=== PATIENT | male | born 1960 | race Caucasian/White ===

== ENCOUNTER 2021-04-13 07:46 | Outpatient (CLI) | payer OTHER, BC, SELFPAY ==
--- NOTE | ~2021-04-13 | CT_ITS ---
EXAMINATION: CT abdomen wo con EXAM DATE: 04/13/2021 08:14 INDICATION: Pancreatitis. TECHNIQUE: Spiral CT of the abdomen was performed without contrast. Axial, coronal and sagittal lelo ges of the abdomen were reviewed. The dose-length product (DLP) for this examination was 276.04 mGy- cm. The exposure was tailored according to patient size (auto mA exposure control), and iterative re construction (ASIR) was used as additional dose reduction technique. There is no prior study for sarah blandon. FINDINGS: Numerous liver masses in all lobes, metastatic disease. Pancreas, spleen are unremarkable. There is an indeterminate left adrenal nodule in each adrenal gland, both measuring about 1 cm Gallb ladder is unremarkable. No biliary obstruction. There is no nephrolithiasis or hydronephrosis. T here is no retroperitoneal lymphadenopathy. There is mild to moderate scattered arteriosclerotic di sease. The stomach and small bowel are unremarkable. There is expected amount of colonic stool. No free intraperitoneal gas. The heart is normal in size. There are no pericardial or pleural effusions. There is a lingular nodule measuring 8 x 13 mm without spiculations. There is an 8 mm right lower lo be nodule without spiculations. Old right lower rib fractures laterally. There is subtle low density 5 mm region within the left 11th rib without cortical destruction. Early osteolytic disease not excl udable. IMPRESSION: 1. Extensive liver metastases. 2. Indeterminate bilateral adrenal nodules. 3. 2 basilar lung nodules, possible metastatic disease. 4. Left 11th rib osteolytic lesion not excludable. 5. Consider PET/CT. Reviewed, dictated and finalized at location A. DENTIAL DOOR UNIT INSTALLER
== END 2021-04-13 07:47 | disposition home or self-care (01) ==
PROVIDERS: PCP Internal Medicine; Visit Provider Internal Medicine
DX: K85.90 Acute pancreatitis without necrosis or infection, unspecified (principal); C78.7 Secondary malignant neoplasm of liver and intrahepatic bile duct; D35.01 Benign neoplasm of right adrenal gland; D35.02 Benign neoplasm of left adrenal gland; R91.8 Other nonspecific abnormal finding of lung field
CPT/HCPCS: 74150

== ENCOUNTER → 2021-05-04 02:14 | Outpatient (CLI) | payer OTHER, BC, SELFPAY ==
[2021-05-04 16:44] LABS: SARS-CoV-2 RNA PCR Negative
== END ==
PROVIDERS: Visit Provider Surgery
DX: Z01.812 Encounter for preprocedural laboratory examination (principal); Z20.822 Contact with and (suspected) exposure to COVID-19
CPT/HCPCS: C9803; U0003; U0005

== ENCOUNTER 2021-05-04 08:27 | Outpatient (CLI) | payer OTHER, BC, SELFPAY ==
[2021-05-04 09:09] LABS: Basophils Absolute Auto 0.1 K/mm3 (0.0-0.1); Basophils Percent Auto 0.6 % (0.2-1.2); Eosinophils Absolute Auto 0.1 K/mm3 (0-0.3); Eosinophils Percent Auto 0.7 % (0-4.4); Hematocrit 42.6 % (42.0-52.0); Hemoglobin 14.2 g/dL (14.0-18.0); Immature Granulocyte Absolute 0.04 K/mm3 (0.00-0.031); Immature Granulocyte Percent A 0.4 % (0-0.5); Lymphocytes Absolute Auto 1.41 K/mm3 (0.9-3.2); Lymphocytes Percent Auto 13.6 % (18.3-44.2); Mean Corpuscular HGB Conc 33.3 g/dl (32-36); Mean Corpuscular Hemoglobin 31.4 pg (26-34); Mean Corpuscular Volume 94.2 fl (80-100); Mean Platelet Volume 9.8 fl (7.4-10.4); Monocytes Absolute Auto 0.9 K/mm3 (0.1-0.6); Monocytes Percent Auto 8.2 % (2.6-8.5); Neutrophils Absolute Auto 7.9 K/mm3 (1.3-6.7); Neutrophils Percent Auto 76.5 % (45.5-73.1); Platelet Count Result 268 k/mm3 (150-375); Red Blood Count 4.52 M/mm3 (4.6-6.20); Red Cell Distribution Width 12.6 % (11.5-14.5); White Blood Count 10.3 K/mm3 (4.5-10.0)
[2021-05-04 09:18] LABS: Prothrombin Time 12.8 Seconds (11.1-14.7)
== END 2021-05-04 08:28 | disposition home or self-care (01) ==
LOC: ANHSURGERY 08:32
PROVIDERS: PCP Internal Medicine; Visit Provider Surgery
DX: C34.90 Malignant neoplasm of unspecified part of unspecified bronchus or lung (principal); Z01.818 Encounter for other preprocedural examination
CPT/HCPCS: 36415; 85025; 85610; 85730

== ENCOUNTER 2021-05-07 04:00 | Day surgery (SDC) | payer OTHER, BC, SELFPAY ==
[2021-05-03 11:38] VITALS: BMI 25.2
--- NOTE | 2021-05-03 11:49 | PC.NURSE ---
Report to the Outpatient Waiting Room, entrance under the green pavilion located off [facility], at time 11:30 on date 05/07/21. OR Time: 1:30. - You will be asked a series of questions to screen for COVID 19 for your protection. - A mask is required within the hospital. - No visitors are allowed at this time. Preoperative COVID Testing Requirements: COVID TEST 05/04 AT 8:30 No COVID Test needed if: (proof is required; if not received patient will have Rapid Test prior to entry) - Patient has received COVID Vaccine at least 14 days prior to procedure date or - Patient has positive COVID test result within last 90 days of surgery date. COVID Test needed if above criteria is not met If not COVID vaccinated a COVID test must be conducted within 72 hours of surgery and patient is asked to isolate self from time of testing until procedure. You will go to the [employer] [facility] for your COVID testing. The [employer] [facility] site is located at the corner of [address] [facility]. You will only be called if COVID results are positive and your surgeon may reschedule your elective surgery date. Patients may have clear liquids (water, carbonated beverages, clear teas, apple juice) until 3 hours prior to surgery (10:30) with a maximum of 20 ounces. - No food from midnight until time of surgery Take the following medications with a SIP of water the morning of surgery: ALPRAZOLAM (IF NEEDED) Medications to discontinue per physician: N/A Date to take last dose: N/A Please no make-up, nail senegalese, hairspray, perfume, deodorant, or body powder the day of surgery. No jewelry (including any body piercings) or valuables the day of surgery, leave them at home. Please take a shower or bath the night before, or the morning of, surgery with an antibacterial soap. Wear comfortable, loose fitting clothing. - Jewelry must be removed prior to entering the operating room. Rings and piercings that are not removed may be cut off. - The hospital will not accept responsibility for valuables. - Please leave all valuables, including medications, at home the day of surgery. If you are going home after surgery, a licensed entry level truck driver must drive you home. - NO public transportation without another adult. - We recommend that an adult stay with you for 24 hours following discharge. - We also recommend that you do not drive, make important decision, drink alcoholic beverages, or take any drugs that were not prescribed by your health care provider for at least 24 hours after your discharge time. Follow any additional instructions given to you from your surgeon. Telephone instructions given to DEWAYNE DANIELLE and asked if any additional questions and then verbalized understanding. Patient advised to call surgeon office or pre surgery nurse liaison [phone] if any additional questions.
--- NOTE | ~2021-05-07 | XR_ITS ---
EXAMINATION: XR fl guide central line place DATE: 05/07/2021 14:54 INDICATION: Port catheter insertion TECHNIQUE: 2 fluoroscopic images of the central chest were obtained during procedure performed by Dr. Montelongo. Radiologist was not present for the imaging or procedure. The amount of fluoroscopy time us ed during this procedure was 0.7 minutes. COMPARISON: None. FINDINGS: Right internal jugular central venous port catheter with distal tip at the caudal superior vena cava. Linear band of discoid atelectasis/scarring extending across the right midlung zone. No evident pneu mothorax. IMPRESSION: 1. Fluoroscopy utilized during right internal jugular central venous port catheter placement with dis kenroy tip at the caudal superior vena cava. Reviewed, dictated and finalized at location A. TRIC TRIPPER MACHINE OPERATOR IMPRESSION: 1. Fluoroscopy utilized during right internal jugular central venous port sky ter placement with distal tip at the caudal superior vena cava.
--- NOTE | ~2021-05-07 | XR_ITS ---
EXAMINATION: XR chest port-a-cath/central DATE: 05/07/2021 15:39 INDICATION: Right port catheter placement TECHNIQUE: frontal view of the chest was obtained. COMPARISON: None FINDINGS: Right internal jugular central venous port catheter with distal tip at the midsuperior vena cava. Ban dlike discoid atelectasis/scarring extends laterally from a masslike at the right hilum. There is als o widening of the right paratracheal stripe. Appearance suspicious for metastatic disease and potenti ally primary bronchogenic carcinoma. Mild opacities in the right upper lung zone which could represen t additional atelectasis and/or pneumonia. No other airspace opacities, pulmonary edema, pleural effu meghan or pneumothorax. Arch size is normal. IMPRESSION: 1. Right internal jugular central venous port catheter tip at the midsuperior vena cava. 2. Masslike opacity right hilum and widening of the right paratracheal stripe suspicious for metastat ic disease and potentially primary bronchogenic carcinoma. 3. More peripheral opacities in the right mid and upper lung zone due at least in part to atelectasis although superimposed pneumonia not excludable. Reviewed, dictated and finalized at location A. TENTER OPERATOR IMPRESSION: 1. Right internal jugular central venous port catheter tip at the midsuperior v lawrence cava. 2. Masslike opacity right hilum and widening of the right paratracheal stripe s uspicious for metastatic disease and potentially primary bronchogenic carcinoma . 3. More peripheral opacities in the right mid and upper lung zone due at least in part to atelectasis although superimposed pneumonia not excludable.
--- NOTE | 2021-05-07 12:07 | PM.HPGS ---
History of Present Illness History of Present Illness Consent: Risks, benefits, and alternatives of placement of a Port-A-Cath with ultrasound guidance have been discussed and questions answered. Patient agrees to proceed with procedure. Chief complaint: malignant neoplasm of lung Narrative: Ariel Marshall is a 60 year old male who has recently discovered lung cancer. There are also metastasis to the liver. He is to be scheduled but has not yet had a core biopsy of a liver lesion guided by CT. Recently saw Dr. Newsome in the office and they are planning to proceed with several rounds of chemotherapy. Therefore, the risks benefits and possible complications including pneumothorax, possible injury to surrounding organs, possible infection and possible bleeding as far as possible complications for placement of a port have been discussed and he seems understand wished to proceed this will allow for improved access to the venous system for administration of chemotherapy or immune therapy Pt. states that he has had a PET scan in [place] at [facility]. He states that he has discussed this with Dr. Newsome and they believe that the most likely primary site is a lung cancer. Review of Systems Constitutional: Constitutional: Reports no additional constitutional complaints, Reports fatigue and Denies malaise Eyes: Eyes: Denies change in vision and Denies loss of vision ENT: Reports Normal hearing present, Denies change in voice, Denies dizziness, Denies hoarseness and Denies sore throat Cardiovascular: Cardiovascular: Denies chest pain, Denies leg edema and Denies dyspnea Respiratory: Respiratory: Denies cough, Denies dyspnea and Denies wheezing Comments: Patient has been a 1 pack-a-day smoker and now smokes 0.5 packs per day. Gastrointestinal: Gastrointestinal: Denies hematochezia, Denies change in bowel habits and Denies heartburn Comments: Now known to have multiple small liver metastasis throughout all lobes of the liver. Apparently also has GERD and is on Protonix at home daily. Genitourinary: Genitourinary: Denies urinary frequency and Denies urinary incontinence Neurologic: Reports Normal hearing present, Denies confusion, Denies dizziness, Denies loss of vision, Denies memory loss and Denies seizure-like activity Psychiatric: Psychiatric: Denies confusion, Denies depression and Denies memory loss Endocrine: Endocrine: Denies cold intolerance and Reports fatigue Hematologic/Lymphatic: Hematologic/Lymphatic: Denies easy bleeding and Denies easy bruising Allergic/Immunologic: Allergic/Immunologic: Denies wheezing PMFSH Social History Social History Smoking packs per day: 2 Smoking cigarettes per day: 40.0 Years smoked: 45 Smoking pack-years: 90.00 Smoking status: Current some day smoker Tobacco type: cigarettes Additional smoking assessment comments: 2019 - CUT BACK TO A COUPLE CIGARETTES EVERY FEW DAYS Alcohol intake: former Alcohol use details: QUIT DRINKING ALCOHOL EARLY MARCH 2021 Substance use: never Substance use type: does not use Spiritual care concerns: No Meds Home Medications and Allergies Home Medications Medication Instructions Recorded Confirmed Type alprazolam 0.5 mg PO DAILY PRN 05/03/21 05/07/21 History pantoprazole 40 mg PO DAILY 05/03/21 05/07/21 History zolpidem 5 mg PO HS PRN 05/03/21 05/07/21 History hydrocodone-acetaminophen 1 tablet PO Q6H PRN #14 tablet 05/07/21 Rx Allergies Allergy/AdvReac Type Severity Reaction Status Date / Time No Known Allergies Allergy Verified 05/07/21 14:22 Exam Const: General: cooperative, healthy appearing, no acute distress, well developed and alert; No confusion Nutritional Appearance: well nourished Orientation/consciousness: patient oriented x3 and No confusion Limitations: no limitations HENMT: Head: normal to inspection, normocephalic and atraumatic Ears: hearing grossly normal bilaterally 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
[2021-05-07 12:30] VITALS: BP 139/80; PULSE 91; RESP 16; TEMP 36.2; O2SAT 98
[2021-05-07] MEDS: KETOROLAC 15 MG/ML VIAL (*BKC) IV PUSH (12:30)
[2021-05-07] MEDS: LACTATED RINGERS 1,000 ML 30 ML IV CONT (12:30)
--- NOTE | 2021-05-07 13:00 | WPDANESEPPF ---
Anes - Initial Pre Proc Eval Procedure: Operation Date: 05/07/21 13:30 Proposed Procedures p Insertion Chance Cath - Barrie Montelongo MD Date/Time: 05/07/21 13:00 Surgeon: Barrie Montelongo MD Pre Op Diagnosis: malignant neoplasm of lung Patient Data Age: 60 Gender: M Height: 1.73 m Weight: 75.3 kg Allergies Allergy/AdvReac Type Severity Reaction Status Date / Time No Known Allergies Allergy Verified 05/03/21 11:36 Home Medications Medication Instructions Recorded Confirmed Type alprazolam 0.5 mg PO DAILY PRN 05/03/21 05/03/21 History pantoprazole 40 mg PO DAILY 05/03/21 05/03/21 History zolpidem 5 mg PO HS PRN 05/03/21 05/03/21 History Patient hx anesthesia problems: none Family hx anesthesia problems: none Results Review: All pre-operative results and documents have been reviewed as part of the pre-operative evaluation. PMF Social History Social History Smoking packs per day: 2 Smoking cigarettes per day: 40.0 Years smoked: 45 Smoking pack-years: 90.00 Smoking status: Current some day smoker Tobacco type: cigarettes Additional smoking assessment comments: CUT BACK SMOKING 2019 TO A COUPLE EVERY FEW DAYS Alcohol intake: current Alcohol use details: QUIT DRINKING EARLY MARCH 2021 Substance use: never Substance use type: does not use Spiritual care concerns: No Anes - Eval Final PreProcedure Day of Procedure 05/07/21 13:00 Patient weight: overweight Heart: regular rate and rhythm Lungs: clear to auscultation Airway: Mallampati scale class II Neurological: alert and oriented Last oral intake: >/= 8 hours ASA classification: III Emergent: no Anesthetic plan: proceed Anesthesia type and monitoring: general GIVS and standard monitoring Results Review: All pre-operative results and documents have been reviewed as part of the pre-operative evaluation. Informed Consent: The patient's anesthetic plan and its attendant risks and benefits were discussed with the patient/family/POA. Questions were solicited and answers provided to the satisfaction of the patient/family/POA.
--- NOTE | 2021-05-07 13:17 | WPDHPUPDATE1 ---
History and Physical Update Update Date/Time: 05/07/21 13:17 History and Physical has been reviewed, including an updated exam of the patient. There are NO changes in the patient's condition. Risks, benefits, and alternatives have been discussed and questions answered. Patient agrees to proceed with procedure.
[2021-05-07] MEDS: ceFAZolin 2 GM/D5W 50 ML 2 GM/50 ML BAG IVPB (14:06)
[2021-05-07] MEDS: HEPARIN SODIUM 5,000 UNITS/ML VIAL 5000 UNITS IRRIGATION (14:06)
[2021-05-07] MEDS: BUPIVACAINE/EPINEPHRINE 0.5% 30 ML VIAL 10 ML INFILTRATE (14:06)
--- NOTE | 2021-05-07 15:13 | W.PM.PROC2 ---
Procedure Note - Detailed Date of Procedure 05/07/21 Pre-op Diagnosis malignant neoplasm of lung Post-op Diagnosis same Procedure Performed Ultrasound guided Placement of Chance-cath Surgeon Barrie Montelongo MD Blasting Machine Operator John HILARIO. OR placement assistant Anesthesia local (with 0.5% Marcaine with epinepherine) and other (GIVS via LMA) Indications Patient was recently discovered to have probable lung cancer with lung and liver metastasis. Also possible metastasis to 1 rib. Findings Normal vascular anatomy in the right neck Description of Procedure Patient was seen and marked in the pre-op area prior to coming to the OR. Patient was brought to the operating room. Patient was placed supine on the operating table and general IV sedation was induced. The nurse packaging associate provided oxygen and IV sedation. Patient's head was carefully turned to the left side while in the supine position and the patient's entire neck and anterior chest on both sides was prepped and draped in the usual sterile fashion. Following this the appropriate time-out was completed confirming procedure and patient. We confirmed that all the needed equipment was present in the room. Following this the ultrasound probe was draped into the field and using the probe we carefully identified the carotid artery and jugular vein on the right neck. We then took a picture of the vascular anatomy of the neck and transferred from the ultrasound to the [employer] chart. I marked the skin directly over the Rt. internal jugular vein. I then used an 11 blade knife to make a small vasquez in the skin. Following this, using the continuous ultrasound guidance, a Cook needle was placed through the skin incision and on into this vein. I then was able to draw back good dark blood. Once this was completed a guidewire using a J-tip was advanced through the needle and then the needle and the guidewire cover were withdrawn. C-arm fluoroscopy was used to confirm that the guidewire was nicely in the venous system. Once this was confirmed with the C - arm, I preceded on by making the pocket for the port on the patient's anterior right chest approximately 3 centimeters below the clavicle overlying the chest wall. Local anesthetic was infiltrated into the skin where there was a transverse incision marked out. Incision was made and we made a pocket inferior to the incision with just a little dissection superior. The Bard low-profile port was tried in the pocket and seemed to fit well. Following this the catheter which had been placed on a tunneling device was tunneled from the port site on the anterior right chest up to the right neck where the small incision had been made slightly larger with an #11 blade knife. Then the catheter was pulled through so that we would have 15 centimeters to put into the central venous system once the dilation took place. Following this we placed the dilator and sheath over the guidewire in the jugular vein and carefully dilated the tract into the central venous system. The guidewire and dilator were then removed, carefully covering the end of the sheath to prevent air embolus. The end of the catheter which had been removed from the tunneling device and the tip checked was then inserted into the sheath and into the neck. I then carefully pulled the 2 arms of the tear-away sheath away as the ict sales assistant held the catheter in position with a DeBakey forceps. Following this we checked the position of the catheter with C-arm fluoroscopy confirming that the tip seemed to be in the distal superior vena cava near the junction with the right atrium. I felt that it was in good position and so the rest of the catheter was pulled down toward the feet into the port site. We then measured to the appropriate position to cut the catheter to attach it to the port stem. Then the connector sealing device for the catheter port was placed onto the catheter and then the catheter cut to the appropriate length and inser
[2021-05-07 16:08] VITALS: BP 130/76; PULSE 49; RESP 18
[2021-05-07 16:15] VITALS: BP 147/80; PULSE 62; RESP 18
[2021-05-07 16:50] VITALS: BP 145/82; PULSE 64; RESP 18
--- NOTE | 2021-05-07 17:45 | SUR.PHASEII ---
159- cxr done to determine placement of portacath.
== END 2021-05-07 17:20 | disposition home or self-care (01) ==
PROVIDERS: PCP Internal Medicine; Visit Provider Surgery
PROC: (CPT 36561; principal; 2021-05-07 13:30)
DX: C34.90 Malignant neoplasm of unspecified part of unspecified bronchus or lung (principal); C78.7 Secondary malignant neoplasm of liver and intrahepatic bile duct; F17.210 Nicotine dependence, cigarettes, uncomplicated
CPT/HCPCS: 36561; 36415; 76937; 77001; 85025; 85610; 85730; C1788; C9803; J0690; J1644; J1885; J2250; J2704; J3010; J7030; J7120; U0003; U0005

== ENCOUNTER → 2021-05-14 02:26 | Outpatient (CLI) | payer OTHER, BC, SELFPAY ==
[2021-05-14 17:14] LABS: SARS-CoV-2 RNA PCR Negative
== END ==
PROVIDERS: PCP Internal Medicine; Visit Provider Radiology Diagnostic Radiology
DX: Z01.812 Encounter for preprocedural laboratory examination (principal); Z20.822 Contact with and (suspected) exposure to COVID-19
CPT/HCPCS: C9803; U0003; U0005

== ENCOUNTER 2021-05-17 09:31 | Outpatient (CLI) | payer OTHER, BC, SELFPAY ==
--- NOTE | 2021-05-07 12:57 | PC.NURSE ---
Report to the Outpatient Waiting Room, entrance under the green pavilion located off [facility], at time 8:00 on date 05/17/21. OR Time: 10:30. - You and your visitor will be asked a series of questions to screen for COVID 19 for your protection. - A mask is required within the hospital. One visitor will be allowed to accompany the patient into the hospital. Patients visitor will be instructed to remain with patient at all times or leave the building. We will allow the visitor to come back to the postoperative area when patient is ready. Preoperative COVID Testing Requirements: COVDI TEST 05/14 AT 9:00 No COVID Test needed if: (proof is required; if not received patient will have Rapid Test prior to entry) - Patient has received COVID Vaccine at least 14 days prior to procedure date or - Patient has positive COVID test result within last 90 days of surgery date. COVID Test needed if above criteria is not met If not COVID vaccinated a COVID test must be conducted within 72 hours of surgery and patient is asked to isolate self from time of testing until procedure. You will go to the [facility] [facility] for your COVID testing. The [employer] [facility] is located at the corner of [address] [facility]. You will only be called if COVID results are positive and your surgeon may reschedule your elective surgery date. - No food/DRINK FOR 6 HOURS PRIOR TO PROCEDURE Take the following medications with a SIP of water the morning of surgery: NONE Medications to discontinue per physician: N/A Date to take last dose: N/A Please no make-up, nail romansh, hairspray, perfume, deodorant, or body powder the day of surgery. No jewelry (including any body piercings) or valuables the day of surgery, leave them at home. Please take a shower or bath the night before, or the morning of, surgery with an antibacterial soap. Wear comfortable, loose fitting clothing. - Jewelry must be removed prior to entering the operating room. Rings and piercings that are not removed may be cut off. - The hospital will not accept responsibility for valuables. - Please leave all valuables, including medications, at home the day of surgery. If you are going home after surgery, a licensed electric truck driver must drive you home. - NO public transportation without another adult. - We recommend that an adult stay with you for 24 hours following discharge. - We also recommend that you do not drive, make important decision, drink alcoholic beverages, or take any drugs that were not prescribed by your health care provider for at least 24 hours after your discharge time. Follow any additional instructions given to you from your surgeon. WRITTEN instructions given to DEWAYNE DANIELLE and asked if any additional questions and then verbalized understanding. Patient advised to call surgeon office or pre surgery nurse liaison [phone] if any additional questions.
[2021-05-07 14:23] VITALS: BMI 25.2
[2021-05-17] VITALS (11 sets, daily range): BP systolic 123–146; BP diastolic 71–85; PULSE 83–107; RESP 16–30; O2SAT 96–100
--- NOTE | ~2021-05-17 | US_ITS ---
EXAMINATION: US biopsy liver DATE: 05/17/2021 10:22 INDICATION: Liver mass. Malignant neoplasm of lung. TECHNIQUE: The procedure including the risks, benefits, and alternatives was discussed with the patie nt. Risks discussed included bleeding and infection. The patient understood the risks and agreed to p roceed. The skin overlying the liver was prepped and draped in usual sterile fashion. Anesthetic was administered with 1% lidocaine subcutaneously. An 18 gauge core biopsy needle was then used to obta in 3 core biopsy specimens under continuous sonographic guidance. The entry site was cleaned and dres sed. There were no immediate complications. FINDINGS: Ultrasound images demonstrate the needle in a 3.0 x 2.2 cm mass in left hepatic lobe. Multi ple liver masses are noted. IMPRESSION: 1. Ultrasound-guided core needle biopsy of a mass in left hepatic lobe. Reviewed, dictated and finalized at location A. ING SECTION CLERK
== END 2021-05-17 14:15 | disposition home or self-care (01) ==
PROVIDERS: Radiology Diagnostic Radiology; PCP Internal Medicine; Visit Provider Internal Medicine Hematology & Oncology
PROC: BF45ZZZ Ultrasonography of Liver (ICD-10-PCS; CPT 47000; principal; 2021-05-17 10:30)
DX: C34.90 Malignant neoplasm of unspecified part of unspecified bronchus or lung (principal)
CPT/HCPCS: 47000; 76942; 88307; 88342; C9803; U0003; U0005

== ENCOUNTER 2021-05-20 14:32 | Outpatient (CLI) | payer OTHER, BC, SELFPAY ==
--- NOTE | ~2021-05-20 | MR_ITS ---
EXAMINATION: MR brain/brain stem wo/w con DATE: 05/20/2021 15:20 INDICATION: Malignant neoplasm of lung. TECHNIQUE: Magnetic resonance imaging (MRI) of the brain and brainstem was performed without and with 14 mL MultiHance intravenous contrast. Sequences included sagittal and axial T1-weighted FSE, axial diffusion-weighted FS EPI, axial T2*-weighted GRE, axial T2-weighted FLAIR Propeller, and axial T2-we ighted Propeller. Postcontrast sequences included axial, sagittal, and coronal T1-weighted FSE. Appar ent diffusion coefficient (ADC) maps were created. COMPARISON: None. FINDINGS: There is an 8 mm rim-enhancing mass in left occipital lobe with associated vasogenic edema. There is a 4 mm enhancing mass in right occipital lobe. There is a 5 mm enhancing mass in the hypoth alamus. There is a developmental venous anomaly in left frontal lobe. There is no intracranial hemorr nathan or acute ischemic infarct. The ventricles are normal in size. There is mild mucosal thickening i n the ethmoid sinuses. The orbits are normal. The mastoid air cells are normal. There are 2 bone julissa ow lesions in the posterior skull with the larger measuring 10 mm. IMPRESSION: 1. Three brain masses measuring up to 8 mm, consistent with metastatic disease. 2. Two bone marrow lesions in the posterior skull, consistent with metastatic disease. Reviewed, dictated and finalized at location A. PHYSICIST IMPRESSION: 1. Three brain masses measuring up to 8 mm, consistent with metastatic disease. 2. Two bone marrow lesions in the posterior skull, consistent with metastatic d isease.
[2021-05-20 14:58] LABS: Estimated Glomerular Filt Rate > 60
== END 2021-05-20 14:33 | disposition home or self-care (01) ==
LOC: ANHIMG 14:33
PROVIDERS: PCP Internal Medicine; Visit Provider Internal Medicine Hematology & Oncology
DX: C34.90 Malignant neoplasm of unspecified part of unspecified bronchus or lung (principal); G93.9 Disorder of brain, unspecified
CPT/HCPCS: 70553; A9577

== ENCOUNTER 2021-08-25 08:31 | Outpatient (CLI) | payer OTHER, BC, SELFPAY ==
--- NOTE | ~2021-08-25 | CT_ITS ---
EXAMINATION: CT chest abdomen pelvis wo con DATE: 08/25/2021 09:00 INDICATION: Malignant neoplasm of lung; restaging TECHNIQUE: Computed tomography (CT) of the chest, abdomen, and pelvis was performed without intraveno us contrast. Automated exposure control and iterative reconstruction technique were employed. Exam do se: 355.71 mGy-cm total exam DLP. COMPARISON: 05/07/2021 portable AP chest 04/13/2021 CT abdomen FINDINGS: CHEST CT: There is a right internal jugular Port-A-Cath catheter with catheter tip in superior vena cava. There is mild to moderate emphysema. There is scattered patchy infiltrate in the right upper lobe. There is a prominent band of discoid at electasis or scarring in the lower anteromedial aspect of the right upper lobe.. There is adjacent so ft tissue thickening in the right suprahilar area and right mediastinum, with severe stricture virtua l occlusion of the right upper lobe bronchus and associated postobstructive right upper lobe volume l oss and patchy infiltrate. Consider PET/CT scan. Normal heart size. No pericardial or pleural effusion. No pneumothorax. ABDOMEN/PELVIS CT: There is extensive hepatic metastatic disease which appears improved since 04/13/2021. The spleen is unremarkable. No pancreatic mass lesion, calcification or ductal dilatation. The gallbl adder is present. No bile duct dilatation is evident. Normal morphology of the adrenal glands. The kidneys and urinary bladder and prostate gland are unremarkable. There is atherosclerotic calcification but normal caliber of the abdominal aorta and iliac arteries. Calcifications of the origins of the renal arteries. No intraperitoneal or retroperitoneal or pelvic mass lesion or adenopathy or ascites. Normal appendix. There is minimal sigmoid colon diverticulosis. No bowel obstruction, bowel wall thic kening, pneumatosis or intraperitoneal free air. Small fat-containing left inguinal hernia. Subacute or old left posterior ninth, 10th and 11th probable rib fractures. There are scattered osteosclerotic lesions including several the left second, fourth and sixth ribs, L1, left sacrum, right ilium. Consider osteosclerotic metastatic disease, particularly from prostate cancer, possibly from the primary lung cancer. Severe degenerative disc disease and mild retrolisthesis at L5-S1. IMPRESSION: Soft tissue thickening in the right suprahilar area and right mediastinum with severe st ricture/virtual occlusion of right upper lobe bronchus, associated right upper lobe postobstructive a telectasis, mild infiltrate, likely due to residual malignancy Consider PET/CT imaging Emphysema Right Port-A-Cath in superior vena cava Improvement of hepatic metastatic disease since 02/11/2022 Scattered osteosclerotic lesions suggesting possible prostate cancer metastases, or possibly lung can cer metastases Reviewed, dictated and finalized at [facility]. Reviewed, dictated and finalized at [facility]. IMPRESSION: Soft tissue thickening in the right suprahilar area and right medi astinum with severe stricture/virtual occlusion of right upper lobe bronchus, a ssociated right upper lobe postobstructive atelectasis, mild infiltrate, likely due to residual malignancy Consider PET/CT imaging Emphysema Right Port-A-Cath in superior vena cava Improvement of hepatic metastatic disease since 02/11/2022 Scattered osteosclerotic lesions suggesting possible prostate cancer metastases , or possibly lung cancer metastases
--- NOTE | ~2021-08-25 | MR_ITS ---
EXAMINATION: MR brain/brain stem wo/w con DATE: 08/25/2021 10:08 INDICATION: Malignant neoplasm of lung, unspecified laterality. TECHNIQUE: Magnetic resonance imaging (MRI) of the brain and brainstem was performed without and with 14 mL MultiHance intravenous contrast. COMPARISON: Brain MRI 05/20/2021 FINDINGS: There is a developmental venous anomaly in left frontal lobe. The 3 enhancing masses previo usly seen in the brain are no longer present. There is no intracranial hemorrhage, acute infarction, or abnormal intracranial mass lesion. The ventricles are normal in size. There is mild mucosal thicke umm in the ethmoid sinuses. There are small bilateral mastoid effusions. Again seen are 2 bone marro w lesions with the larger measuring 12 mm in the posterior skull. IMPRESSION: 1. Interval resolution of metastatic disease to the brain. 2. Two stable bone marrow lesions in the posterior skull, likely metastatic disease. Reviewed, dictated and finalized at [facility] IMPRESSION: 1. Interval resolution of metastatic disease to the brain. 2. Two stable bone marrow lesions in the posterior skull, likely metastatic dis ease.
== END 2021-08-25 08:32 | disposition home or self-care (01) ==
PROVIDERS: PCP Internal Medicine; Visit Provider Internal Medicine Hematology & Oncology
DX: C34.90 Malignant neoplasm of unspecified part of unspecified bronchus or lung (principal); J43.9 Emphysema, unspecified
CPT/HCPCS: 70553; 71250; 74176; A9577